=== PATIENT | male | born 1970 | race Caucasian/White ===

== ENCOUNTER 2017-04-28 23:55 | Emergency (ER) | payer BC ==
[~2017-04-28] VITALS: Ht 167.6 cm; Wt 118.5 kg
[~2017-04-28 23:55] MED LIST: ASPI81TA21 PO; MULT-506 PO; OMEP20CA59 PO
[2017-04-28 23:59] VITALS: TEMP 36.5; Ht 167.6 cm; Wt 118.5 kg
[2017-04-29 00:03] VITALS: O2SAT 95
[2017-04-29] MEDS ORDERED: LISI-729 PO (00:13)
[2017-04-29] MEDS ORDERED: METHYLPREDNISOLONE 125 MG VIAL IV STA (00:16)
[2017-04-29] MEDS ORDERED: RANITIDINE HCL 50 MG/100 ML D5W IV STA (00:16)
[2017-04-29] MEDS ORDERED: DiphenhydrAMINE HCL 50 MG/ML VIAL IV STA (00:16)
[2017-04-29 00:46] LABS: BASO % 0.3 %; BASO ABS # 0.03 K/uL (0-0.2); COMPLETE YES; EOS % 1.2 %; HEMATOCRIT 47.7 % (42-52); IG% 0.4 %; LYMPH % 31.6 %; LYMPH ABS # 3.26 K/uL (1.2-3.4); MEAN CELL VOLUME 87.7 fL (80-100); MEAN CORPUSCULAR HEMOGLOBIN 29.8 pg (25-34); MONO % 7.7 %; NEUT % 58.8 %; PLATELET COUNT 305 K/uL (130-400); RED BLOOD COUNT 5.44 M/uL (4.7-6.1); WHITE BLOOD COUNT 10.32 K/uL (4.8-10.8)
[2017-04-29 01:08] LABS: BLOOD UREA NITROGEN 16 mg/dl (7-18); BUN/CREATININE RATIO 8.5 (10-20); CALCIUM 8.7 mg/dl (8.5-10.1); CARBON DIOXIDE 22 mmol/L (21-32); CHLORIDE 107 mmol/L (98-107); GLUCOSE 199 mg/dl (70-99); POTASSIUM 4.1 mmol/L (3.5-5.1); SODIUM 143 mmol/L (136-145)
[2017-04-29 01:13] LABS: CKMB/CK RATIO 0.7 (0-3.0)
[2017-04-29 01:49] VITALS: BP 108/75; PULSE 88; O2SAT 95
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
--- NOTE | 2017-04-29 08:22 | DIAGNOSTIC IMAGING REPORT ---
CHEST ONE VIEW PORTABLE HISTORY: Short of breath. COMPARISON: Chest 08/12/2012. FINDINGS: The lungs are clear. Cardiac silhouette is normal in size. No pleural effusions. No pneumothorax. IMPRESSION: No acute process. Electronically signed by: Param Wilkins M.D. 04/29/2017 8:21 AM Dictated Date/Time: 04/29/2017 8:20 AM
== END 2017-04-29 02:02 | disposition home or self-care (01) ==
LOC: C.EDB 23:56 → C.EDA 04-29 02:02
DX: T46.4X1A Poisoning by angiotensin-converting-enzyme inhibitors, accidental (unintentional), initial encounter (principal); N28.9 Disorder of kidney and ureter, unspecified; R73.9 Hyperglycemia, unspecified; I10 Essential (primary) hypertension; Z79.82 Long term (current) use of aspirin; Z79.899 Other long term (current) drug therapy; Z87.891 Personal history of nicotine dependence

== ENCOUNTER → 2017-11-19 | Day surgery (SDC) | payer OTHER ==
[2017-11-14 10:30] VITALS: Ht 167.6 cm; Wt 97.7 kg
[~2017-11-19] VITALS: Ht 167.6 cm; Wt 97.7 kg
[~2017-11-19] MED LIST changes: -ASPI81TA21 PO; +ATROPINE SULFATE 0.1 MG/ML 5ML SYR IV PRN; +BUPIVACAINE/EPINEPHRINE 0.25% 1:200,000 30 ML VIAL ONE; +CEFAZOLIN 2000MG IV PUSH 10 ML IV SCH; +DEXAMETHASONE SOD INJ 4 MG/ML VIAL ONE; +FENTANYL CITRATE INJ 50 MCG/1 ML 2 ML VIAL ONE; +HYDR-5688 PO; +IBUP-1050 PO; +KETOROLAC TROMETHAMINE 30 MG/ML VIAL IV. PRN; +KETOROLAC TROMETHAMINE 30 MG/ML VIAL ONE; +LABETALOL HCL IV 5 MG/ML 20ML IV PRN; +LACTATED RINGER'S 1000ML 1,000 ML IV SCH; +LIDOCAINE HCL 2% 2 ML VIAL (20MG/ML) ONE; +METO-478 PO; +MIDAZOLAM HCL 1 MG/ML 2ML VIAL ONE; -MULT-506 PO; -OMEP20CA59 PO; +ONDANSETRON INJ 2 MG/ML 2 ML VIAL IV PRN; +ONDANSETRON INJ 2 MG/ML 2 ML VIAL ONE; +OXYCODONE/ACETAMINOPHEN 5-325 TAB PO PRN; +PROPOFOL IV EMULSION 10 MG/ML 20 ML VIAL IV ONE; +SODIUM CHLORIDE 0.9% 1000ML 1,000 ML IV SCH
--- NOTE | 2017-11-19 06:51 | History & Physical Bridge - SC ---
H&P Re-Evaluation Bridge Note: I have examined the patient, reviewed the History & Physical and in the interval since the performance of the History & Physical I have noted the following changes of clinical significance: No changes noted
--- NOTE | 2017-11-19 07:58 | [facility] Post Operative Brief Note ---
Immediate Operative Summary Operative Date Nov 19, 2017. Pre-Operative Diagnosis Right Bicips Tendon Rupture Post-Operative Diagnosis same as preop Procedure(s) Performed Right Distal Biceps Tendon Repair Surgeon Dr. Salmeron Leather Tooler Surgeon(s) ISMA Henry Estimated Blood Loss 5ML Findings as above Specimens none per surgeon Complication(s) None Disposition Recovery Room / PACU
--- NOTE | 2017-11-19 08:01 | Discharge Instructions-SurgCtr ---
Discharge Instructions Date of Service Nov 19, 2017. Visit Reason for Visit: Right Distal Biceps Tendon Rupture Discharge Discharge Diagnosis / Problem: SAME ABOVE Discharge Goals Goal(s): Decrease discomfort, Improve function Activity Recommendations Activity Limitations: as noted below Lifting Limitations: until after follow-up appointment Exercise/Sports Limitations: until after follow-up appointment Shower/Bathe: keep incision dry Anesthesia . Post Anesthesia Instructions: If you have had General Anesthesia or IV Sedation: * Do not drive today. * Resume driving when surgeon permits. * Do not make important decisions or sign legal documents today. * Call surgeon for: 1. Temperature elevations greater than 101 degrees F. 2. Uncontrollable pain. 3. Excessive bleeding. 4. Persistent nausea and vomiting. 5. Medication intolerance (nausea, vomiting or rash). * For nausea and vomiting use only clear liquids such as: tea, soda, bouillon until nausea subsides, then gradually increase diet as tolerated. * If you have any concerns or questions, call your surgeon's office. If physician is unavailable and it is an emergency, call 911 or go to the nearest emergency room. . Instructions / Follow-Up Instructions / Follow-Up MEDICATIONS: * Resume previous medications unless instructed otherwise by your surgeon. * Always take pain medication on a full stomach or with food to avoid upset stomach. * Do not drink alcohol or drive while taking narcotics. * Ibuprofen or Tylenol may be taken if narcotic not needed. SPECIAL CARE INSTRUCTIONS: __ None _X_ Keep extremity elevated and iced x 48 hours; apply ice 20-30 minutes 8-10 times/day. May remove at night. _X_ Sling __24 hrs/day __ Remove at night __ Shoulder Immobilizer __ 24 hrs/day __ Remove at night _X_ Dressing _X_ Maintain until seen in office, may shower with plastic over site __ Remove dressings in 24-48 hours and then may shower __ Cover incisions with band-aids after showering __ Do not remove steri-strips KEEP INCISION DRY. NO HEAVY LIFTING WITH RIGHT ARM UNTIL SEEN IN THE OFFICE. Call physician if chills or temperature rises above 102 degrees or pain unrelieved by prescribed pain medications at . . Diet Recommendations Home Diet: resume previous diet Procedures Procedures Performed: Right Distal Biceps Tendon Repair Pending Studies Studies pending at discharge: no Medical Emergencies . Who to Call and When: Medical Emergencies: If at any time you feel your situation is an emergency, please call 911 immediately. . Non-Emergent Contact Non-Emergency issues call your: Primary Care Provider . . "Provider Documentation" section prepared by Tyler Lora. .
[2017-11-19] MEDS: FENTANYL CITRATE INJ 50 MCG/1 ML 2 ML VIAL IV PRN ×7 (08:07→09:02)
--- NOTE | 2017-11-19 08:39 | OPERATIVE REPORT ---
DATE OF OPERATION: 11/19/2017 PREOPERATIVE DIAGNOSIS: Acute right distal biceps tendon rupture. POSTOPERATIVE DIAGNOSIS: Same. PROCEDURE: Open right distal biceps tenodesis. SURGEON: Dr. Tyler Salmeron. MANAGER FORMS: Tyler Lora PA-C, whose assistance was necessary for retraction and closure. ANESTHESIA: General. COMPLICATIONS: None. CONDITION: Stable to PACU. INDICATIONS: Tanvir is a pleasant 47-year-old male who sustained an injury to his right elbow about a week ago. MRI and clinical examination were diagnostic for acute distal biceps tendon rupture. After discussions in the office, he elected to proceed with an open biceps tenodesis. DESCRIPTION OF PROCEDURE: On 11/19/2017, he arrived at [facility] for the above procedure. He was seen in the preoperative holding area and the operative extremity was identified and signed. He was given a preoperative antibiotic, taken back to the operating room, laid on the table in supine position and put under general anesthesia. The right arm was then prepped and draped in sterile fashion. Time-out was done and the patient's operative extremity was properly identified. A longitudinal incision was made directly between the mobile wad and the flexor pronator mass. Dissection was taken down through the fascia with care not to disrupt the neurovascular bundles. Dissection was taken down directly to the radial tuberosity. It was easily exposed. The biceps tendon was then pulled out of the wound. The tendon was then freshened up and whipstitched with an Arthrex FiberLoop. An Arthrex distal biceps button was then placed on the tails of the FiberLoop. Attention was turned back to the radial tuberosity. A guidepin was sent through the center of the radial tuberosity and out the posterior cortex. An 8-mm drill was used to open up the radial tuberosity, but did not penetrate the posterior cortex. The Arthrex biceps button was then passed through the posterior cortex and flipped and a tension slide technique was used to deliver the tendon into the 8-mm hole. This gave good fixation. A 7 x 10 mm biointerference screw was then placed on the radial side to push the tendon ulnarly. The tails from the FiberLoop were then tied around this screw. This gave excellent fixation. I was able to get full range of motion of the elbow. The wound was then irrigated. Surrounding soft tissues were injected with Marcaine with epinephrine. The tourniquet was deflated and hemostasis was maintained. The skin was then closed with 3-0 Vicryl and a 3-0 nylon suture in a mattress fashion. He was then placed in a soft dressing and taken to the postanesthesia care unit in stable condition. He tolerated the procedure well. I attest to the content of the Intraoperative Record and any orders documented therein. Any exception s are noted below.
--- NOTE | 2017-11-19 09:59 | Anesthesia Progress Nt - [facility] ---
Anesthesia Post Op Note Date & Time Nov 19, 2017 at 09:58 Vital Signs Vital Signs Past 12 Hours Date Time Temp Pulse Resp B/P (MAP) Pulse Ox O2 Delivery O2 Flow Rate FiO2 11/19/17 09:26 72 16 153/96 (115) 94 Room Air 11/19/17 09:17 73 9 11/19/17 09:17 75 9 94 11/19/17 09:16 161/97 11/19/17 09:15 160/102 11/19/17 09:12 75 12 96 11/19/17 09:12 76 12 11/19/17 09:11 83 13 11/19/17 09:11 82 13 167/100 96 11/19/17 09:07 36.7 80 20 153/96 96 Room Air 11/19/17 09:06 90 16 153/96 94 11/19/17 09:06 91 16 11/19/17 09:04 160/104 11/19/17 09:01 72 17 11/19/17 09:01 72 17 153/97 99 11/19/17 08:56 69 10 162/105 99 11/19/17 08:56 70 10 11/19/17 08:51 71 15 151/96 99 11/19/17 08:51 73 15 11/19/17 08:50 158/89 11/19/17 08:50 151/102 11/19/17 08:46 87 13 11/19/17 08:46 87 13 151/87 92 11/19/17 08:44 158/102 11/19/17 08:42 159/101 11/19/17 08:41 82 9 96 11/19/17 08:41 81 9 11/19/17 08:36 70 15 159/101 99 11/19/17 08:36 70 15 11/19/17 08:31 74 14 155/93 98 11/19/17 08:31 73 14 11/19/17 08:26 67 13 152/101 97 11/19/17 08:26 66 13 11/19/17 08:24 154/98 11/19/17 08:21 75 15 150/100 97 11/19/17 08:21 74 15 11/19/17 08:16 70 15 154/90 97 11/19/17 08:16 69 15 11/19/17 08:11 74 13 11/19/17 08:11 72 13 149/102 97 11/19/17 08:06 76 13 11/19/17 08:06 74 13 128/81 95 11/19/17 08:02 144/95 11/19/17 08:01 78 9 94 11/19/17 08:01 79 9 11/19/17 07:57 143/93 11/19/17 07:56 36.0 79 12 143/93 93 Mask 6 11/19/17 06:29 36.4 64 22 124/82 (96) 97 Room Air Notes Mental Status: alert / awake / arousable, participated in evaluation Pt Amnestic to Procedure: Yes Nausea / Vomiting: adequately controlled Pain: adequately controlled Airway Patency, RR, SpO2: stable & adequate BP & HR: stable & adequate Hydration State: stable & adequate Anesthetic Complications: no major complications apparent
[2017-11-19 10:16] VITALS: BP 132/86; PULSE 75; TEMP 36.4; O2SAT 96
== END | disposition home or self-care (01) ==
LOC: X.SURG 06:14
PROVIDERS: ATTEND Orthopaedic Surgery
DX: S46.111A Strain of muscle, fascia and tendon of long head of biceps, right arm, initial encounter (principal); X50.0XXA Overexertion from strenuous movement or load, initial encounter; I10 Essential (primary) hypertension; E66.9 Obesity, unspecified; Z87.891 Personal history of nicotine dependence